=== PATIENT | female | born 1985 | race Caucasian/White ===

== ENCOUNTER 2017-01-01 02:21 | Emergency (ER) | payer OTHER ==
[~2017-01-01] VITALS: Ht 152.4 cm; Wt 49.9 kg
[~2017-01-01 02:21] MED LIST: APAP500 PO; NORCO 5-325 TA1 EACH PO; PRENATAL TABLE1 EAC3 PO; SENNA PO
[2017-01-01 05:12] LABS: URINE BILIRUBIN NEGATIVE (Negative); URINE BLOOD 3+ (Negative); URINE COLOR YELLOW; URINE GLUCOSE-RANDOM* NEGATIVE (Negative); URINE KETONES TRACE (Negative); URINE LEUKOCYTES-REFLEX NEGATIVE (Negative); URINE PROTEIN (DIPSTICK) NEGATIVE (Negative); URINE SPECIFIC GRAVITY 1.015 (1.003-1.035)
[2017-01-01 05:22] LABS: SQUAMOUS 4-10 Moderate /LPF (0-3); URINE RBC >20 Many /HPF (0-2)
[2017-01-01 05:23] LABS: CASTS None Seen /LPF (None Seen); CRYSTALS None Seen /LPF (None Seen); URINE WBC-REFLEX 0-5 Rare /HPF (0-5)
[2017-01-01 06:03] LABS: HEMATOCRIT 30.2 % (37.0-47.0); HEMOGLOBIN 9.4 gm/dL (12.0-15.0); MCV 67.9 fL (80.0-100.0); RBC 4.45 mil/uL (4.20-5.00); RDW 17.6 % (10.5-14.5)
[2017-01-01 06:11] LABS: CALCIUM 8.3 mg/dL (8.5-10.1); CREATININE 0.7 mg/dL (0.6-1.0); POTASSIUM 3.3 mmol/L (3.5-5.1)
[2017-01-01 06:16] LABS: ALBUMIN 3.5 g/dL (3.4-5.0); TOTAL BILIRUBIN 0.3 mg/dL (<0.1-1.0); TOTAL PROTEIN 7.4 g/dL (6.4-8.2)
[2017-01-01] MEDS ORDERED: GAS-X125 M1 PO (07:44)
[2017-01-01] MEDS ORDERED: PHENERGAN 25 MG25 M1 PO (07:44)
[2017-01-01] MEDS ORDERED: ULTRAM 50MG TAB50 MG PO (07:44)
[2017-01-01 08:04] VITALS: BP 125/79
== END 2017-01-01 08:05 | disposition home or self-care (01) ==
LOC: ER 02:21
PROVIDERS: Emergency Medicine
DX: R10.84 Generalized abdominal pain (principal); Z98.890 Other specified postprocedural states